=== PATIENT | female | born 1950 | race Caucasian/White ===

== ENCOUNTER 2019-09-14 16:45 | Observation (INO) | payer MEDICARE, OTHER ==
[~2019-09-14] VITALS: Ht 167.6 cm; Wt 61.7 kg
[2019-09-14] MEDS ORDERED: ONDANSETRON HCL INJ 2MG/ML 2ML 2 MG/ML VIAL IV NR (17:46)
[2019-09-14] MEDS ORDERED: SODIUM CHLORIDE 0.9% 1000ML 1,000 ML IV STA ×2 (17:46)
--- NOTE | 2019-09-14 17:51 | Emergency Department Note ---
History of Present Illnes History of Present Illness Chief Complaint: Abdominal Complaints History of Present Illness This is a 69 year old female . Historian: Patient Arrival Mode: Car Contract Specialist Required: No Onset (how long ago): month(s) (2) Location: RUQ/ EPIGASRIC Quality: sharp Severity: severe Onset quality: gradual Duration (how long): month(s) (2) Timing of current episode: constant Progression: worsening Chronicity: recurrent Context: Denies recent illness, Denies recent surgery, Denies recent immobilization, Denies recent travel, Denies trauma/injury, Denies new medications, Denies hx of DVT/PE, Denies non-compliance w/ medications, Denies other Relieving factors: none Exacerbating factors: none Treatments prior to arrival: none Past Medical/Family History Physician Review I have reviewed the patient's past medical and family history. Any updates have been documented here. Past Medical History Recent Fever: No Clinical Suspicion of Infectio: No New/Unexplained Change in Ment: No Past Medical History: GERD Other Medical History: gallstones Past Surgical History: Hysterectomy Other Surgery: cyst removal bladder repaired 2 foot surgeries Social History Any Illegal Drug Use: No TB Exposure/Symptoms: No Physically hurt or threatened: No Family History Family history of heart diseas: No Other Any Pre-Existing Lines (PICC,: No Is patient up to date on immun: Yes Review of Systems ROS Narrative c/o gallbladder pain states hx of gallstones told she may need gallbladder removal c/o nausea no vomiting denies dysuria/hematuria. Sent from Dr Dickey office for admission Review of Systems Constitutional: Reports no symptoms EENTM: Reports no symptoms Cardiovascular: Reports no symptoms Respiratory: Reports no symptoms Gastrointestinal: Reports abdominal pain, Reports nausea Genitourinary: Reports no symptoms Musculoskeletal: Reports no symptoms Integumentary: Reports no symptoms Neurological: Reports no symptoms Psychological: Reports no symptoms Endocrine: Reports no symptoms Hematological/Lymphatic: Reports no symptoms Physical Exam Related Data Allergies: Coded Allergies: latex (Verified Allergy, Unknown, 09/14/19) Triage Vital Signs Vital Signs Date Time Temp Pulse Resp B/P (MAP) Pulse Ox O2 Delivery O2 Flow Rate FiO2 09/14/19 17:32 98.6 72 18 183/80 100 Room Air Vital signs reviewed: Yes Physical Exam CONSTITUTIONAL Constitutional: Present well-developed, Present well-nourished HENT HENT: Present normocephalic, Present atraumatic, Present oropharynx c lear/moist, Present nose normal HENT L/R: Present left ext ear normal, Present right ext ear normal EYES Eyes: Reports PERRL, Reports conjunctivae normal NECK Neck: Present ROM normal PULMONARY Pulmonary: Present effort normal, Present breath sounds normal CARDIOVASCULAR Cardiovascular: Present regular rhythm, Present heart sounds normal, Present capillary refill normal, Present normal rate GASTROINTESTINAL Abdominal: Present soft, Present bowel sounds normal, Present tender (RUQ and epigastric) GENITOURINARY Genitourinary: Present exam deferred SKIN Skin: Present warm, Present dry MUSCULOSKELETAL Musculoskeletal: Present ROM normal NEUROLOGICAL Neurological: Present alert, Present oriented x 3, Present no gross motor or sensory deficits PSYCHOLOGICAL Psychological: Present mood/affect normal, Present judgement normal Results Laboratory Lab results reviewed: Yes Imaging Imaging results reviewed: Yes Assessment & Plan Medical Decision Making MDM Blood work, UA, to r/o infection IVF and , antibiotics and pain medication Discussed with patient admission and treatment plan with admission Assessment & Plan Final Impression: (1) Abdominal pain (2) Cholelithiasis Depart Disposition: ADMITTED Last Vital Signs Date Time Temp Pulse Resp B/P (MAP) Pulse Ox O2 Delivery O2 Flow Rate FiO2 09/14/19 17:32 98.6 72 18 183/80 100 Room Air KINZA ORTIZ Sep 14, 2019 17:51
[2019-09-14] MEDS ORDERED: MORPHINE SULFATE 2 MG/ML SYR 1ML IV NR (18:15)
[2019-09-14] MEDS ORDERED: FAMOTIDINE 20 MG/2 ML VIAL IV NR (18:15)
[2019-09-14 18:22] LABS: BASOPHILS % 0.2 % (0.0-1.0); EOSINOPHILS # (AUTO) 0.1 (0.0-0.4); EOSINOPHILS % 1.4 % (0.0-6.0); HEMATOCRIT 46.9 % (34.2-44.1); HEMOGLOBIN 15.2 g/dL (12.0-16.0); LYMPHOCYTES # (AUTO) 1.8 (1.0-3.2); LYMPHOCYTES % 18.9 % (18.0-39.1); MEAN CORPUSCULAR HGB CONC 32.4 g/dL (31-35); MEAN CORPUSCULAR VOLUME 86.4 fL (81-99); MONOCYTES # (AUTO) 0.5 (0.2-0.8); MONOCYTES % 5.8 % (4.4-11.3); NEUTROPHILS # (AUTO) 6.9 (2.1-6.9); NEUTROPHILS % 73.3 % (38.7-80.0); PLATELET COUNT 269 x10e3/uL (140-360); RED BLOOD COUNT 5.43 x10e6/uL (3.6-5.1); RED CELL DISTRIBUTION WIDTH 13.5 % (11.7-14.4)
[2019-09-14 18:25] LABS: BILIRUBIN,URINE NEGATIVE (NEGATIVE); CLARITY,URINE CLEAR (CLEAR); COLOR,URINE YELLOW (YELLOW); KETONES,URINE TRACE (NEGATIVE); LEUKOCYTE ESTERASE ,URINE NEGATIVE (NEGATIVE); NITRITE,URINE NEGATIVE (NEGATIVE); PROTEIN,URINE DIPSTICK NEGATIVE (NEGATIVE); URINE UROBILINOGEN 0.2 mg/dL (0.2 - 1)
[2019-09-14 18:29] LABS: INR 0.94; PROTHROMBIN TIME 13.1 seconds (11.9-14.5)
[2019-09-14 18:30] LABS: PARTIAL THROMBOPLASTIN TIME 26.9 seconds (23.8-35.5)
[2019-09-14] MEDS ORDERED: PIPER-TAZ 3.375 GM 50 ML IV NR (18:30)
[2019-09-14 18:38] LABS: BACTERIA,URINE MODERATE /HPF; EPITHELIAL CELLS,URINE MODERATE /LPF
[2019-09-14 18:38] LABS: ALANINE AMINOTRANSFERASE 17 IU/L (0-55); ALBUMIN 4.1 g/dL (3.5-5.0); ALBUMIN/GLOBULIN RATIO 1.2 (0.8-2.0); ALKALINE PHOSPHATASE 76 IU/L (40-150); ANION GAP 14.8 mmol/L (8-16); BLOOD UREA NITROGEN 9 mg/dL (7-26); BUN/CREATININE RATIO 11 (6-25); CALCIUM 9.2 mg/dL (8.4-10.2); CARBON DIOXIDE 24 mmol/L (22-29); CHLORIDE 105 mmol/L (98-107); CREATINE KINASE 57 IU/L (29-168); CREATININE, SERUM 0.85 mg/dL (0.57-1.11); EST GLOMERULAR FILTRATION RATE > 60 ML/MIN (60-); GLUCOSE 128 mg/dL (74-118); LIPASE 36 U/L (8-78); MAGNESIUM 1.8 MG/DL (1.3-2.1); POTASSIUM 3.8 mmol/L (3.5-5.1); SODIUM 140 mmol/L (136-145)
--- NOTE | 2019-09-14 19:15 | Diagnostic Imaging Report ---
EXAMINATION: CHEST SINGLE (PORTABLE) INDICATION: ^ERMD ORDER ^[id number] ^[id number] ^Y COMPARISON: None FINDINGS: AP view TUBES and LINES: None. LUNGS: Lungs are well inflated. There is no evidence of pneumonia or pulmonary edema. PLEURA: No pleural effusion or pneumothorax. HEART AND MEDIASTINUM: The cardiomediastinal silhouette is unremarkable. BONES AND SOFT TISSUES: No acute osseous lesion. Soft tissues are unremarkable. UPPER ABDOMEN: No free air under the diaphragm. IMPRESSION: No acute thoracic abnormality. Signed by: Dr. Janusz aFn MD on 09/14/2019 7:11 PM
[2019-09-14] MEDS: ONDANSETRON HCL INJ 2MG/ML 2ML 2 MG/ML VIAL IV PRN ×2 (20:29→23:28)
[2019-09-14 20:54] VITALS: BP 173/77
[2019-09-14] MEDS: SODIUM CHLORIDE 0.9% 1000ML 1,000 ML IV SCH (21:34)
[2019-09-14] MEDS ORDERED: MORPHINE SULFATE 2 MG/ML SYR 1ML IV PRN (22:00)
[2019-09-14] MEDS: PIPER-TAZ 3.375 GM 50 ML IV SCH (22:00)
[2019-09-14] MEDS ORDERED: ACETAMINOPHEN 325 MG TAB PO PRN (23:00)
[2019-09-14] MEDS ORDERED: ZOLPIDEM TARTRATE 5 MG TAB PO PRN (23:00)
[2019-09-14] MEDS: HYDROMORPHONE 1MG/1ML INJ IV PRN (23:28)
[2019-09-15] VITALS (10 sets, daily range): BP systolic 111–160; BP diastolic 46–77
--- NOTE | 2019-09-15 02:40 | NUR ---
PT IS TRANSFERRED FROM ER AOX3 RESPIRATIONS ARE EVEN AND UNLABORED LEFT AC 20G NS AT 125 CC/HR ASSESSMENT DONE ORIENTED THE PT TO THE ENVIRONMENT PT C/O PAIN AND GIVEN MORPHINE AND NOT EFFECTIVE CALLED DR WILLIAM AND GOT THE ORDER FOR DILAUDID .MEDICATED WITH DILAUDID ,PT IS RESTING .CALL LIGHT WITH IN REACH CONTINUE TO MONITOR
--- NOTE | 2019-09-15 02:44 | NUR ---
CALLED DR MCNEAL FOR CONSULT , HAS GIVEN THE ORDER FOR CONSENT FOR KATHLEEN KNAPP .PT IS NPO CONTINUE TO MONITOR
[2019-09-15] MEDS: HYDROMORPHONE 1MG/1ML INJ IV PRN ×3 (04:52→20:10)
[2019-09-15] MEDS: ONDANSETRON HCL INJ 2MG/ML 2ML 2 MG/ML VIAL IV PRN (04:52)
[2019-09-15 05:16] LABS: BASOPHILS % 0.2 % (0.0-1.0); HEMATOCRIT 46.5 % (34.2-44.1); LYMPHOCYTES # (AUTO) 1.7 (1.0-3.2); MEAN CORPUSCULAR HEMOGLOBIN 27.7 pg (28-32); MEAN CORPUSCULAR HGB CONC 32.3 g/dL (31-35); MEAN CORPUSCULAR VOLUME 85.8 fL (81-99); MONOCYTES # (AUTO) 1.1 (0.2-0.8); MONOCYTES % 9.6 % (4.4-11.3); NEUTROPHILS # (AUTO) 8.7 (2.1-6.9); NEUTROPHILS % 74.8 % (38.7-80.0); PLATELET COUNT 243 x10e3/uL (140-360); RED BLOOD COUNT 5.42 x10e6/uL (3.6-5.1); RED CELL DISTRIBUTION WIDTH 13.4 % (11.7-14.4)
[2019-09-15 05:38] LABS: ALANINE AMINOTRANSFERASE 16 IU/L (0-55); ALBUMIN 3.8 g/dL (3.5-5.0); ALBUMIN/GLOBULIN RATIO 1.1 (0.8-2.0); ALKALINE PHOSPHATASE 65 IU/L (40-150); ANION GAP 12.6 mmol/L (8-16); BLOOD UREA NITROGEN 6 mg/dL (7-26); BUN/CREATININE RATIO 8 (6-25); CALCIUM 8.5 mg/dL (8.4-10.2); CARBON DIOXIDE 23 mmol/L (22-29); CHLORIDE 103 mmol/L (98-107); CREATININE, SERUM 0.72 mg/dL (0.57-1.11); EST GLOMERULAR FILTRATION RATE > 60 ML/MIN (60-); GLUCOSE 152 mg/dL (74-118); LIPASE 21 U/L (8-78); POTASSIUM 3.6 mmol/L (3.5-5.1); SODIUM 135 mmol/L (136-145)
[2019-09-15] MEDS: PIPER-TAZ 3.375 GM 50 ML IV SCH ×2 (05:52→17:00)
--- NOTE | 2019-09-15 06:08 | NUR ---
H&P cc: abdominal pain HPI: 69yoF, PCP , GI , Sx , developed right upper abdominal pain; Pt had N/V with greenish material; Pain worse, so came to hospital. Really pain ongoing intermittently for 3 months; Pt sent from 's office for procedure for Cholelithiasis and Acute cholecystitis. PMH: GERd, endometriosis PSHx: hysterectomy, cyst, endometriosis related, bladder repair, foot x2 Allergies; see emr FH/HS; ; no cigs; meds; see MAR ROS: no f/c/s/RAI/cp/sob/skin rash/confusion/vision changes/focal limb weakness v/s; revd PE tired appearing anicteric ns1s2 mod bs soft nd; RUQ tender; mid abdomen tender no e/t skin dry n. affect a&ox3; [facility] lab/meds revd A/P: Cholelithiasis- sx consulted; Acute cholecystitis- IV abx; sx consulted GERD- ppi Prop: scd dispo: COVID screening; Jesus Poon MD, PHD.
--- NOTE | 2019-09-15 06:33 | NUR ---
PT RESTING .PT IS NPO FOR LAP HOLLEY .C/O PAIN AND GIVEN ORDERD PAIN MEDICATION.,CALL LIGHT WITH IN REACH ,CONTINUE TO MONITOR
[2019-09-15] MEDS: SODIUM CHLORIDE 0.9% 1000ML 1,000 ML IV SCH ×2 (06:49→12:00)
--- NOTE | 2019-09-15 08:00 | NUR ---
PT ASSESSMENT COMPLETED AND PT READY TO GO TO SURGERY. NPO SINCE MIDNIGHT. PAIN 5/10; MEDICATED AT ORDERED.
[2019-09-15] MEDS: FAMOTIDINE 20 MG/2 ML VIAL IV SCH ×2 (08:02→16:43)
--- NOTE | 2019-09-15 08:32 | NUR ---
DR BROOKS TO SEE PT.
[2019-09-15] MEDS ORDERED: BUPIVACAINE HCL 0.5% INJ 30 ML VIAL INJ ONE (09:04)
--- NOTE | 2019-09-15 09:35 | Consultation ---
DATE OF CONSULTATION: 09/15/2019 HISTORY OF PRESENT ILLNESS: This is a 69-year-old lady very well known to me, who admitted to the hospital last night because of severe pain in the right upper quadrant area. The patient has a history of gallstones, she had workup revealed that her white count is little bit high of 11.59 and her liver enzymes, however, is normal, and she is scheduled for cholecystectomy later today. PAST MEDICAL PROBLEM: Otherwise significant for history of some constipation, had colonoscopy yesterday and shows diverticulosis and colon polyps, history of reflux and hiatal hernia. CURRENT MEDICATIONS: Including famotidine and Zosyn. ALLERGIES: NONE. SOCIAL HISTORY: No alcohol abuse. FAMILY HISTORY: Noncontributory. REVIEW OF SYSTEMS: Denies any chest pain at this point. Denies any shortness of breath. Denies any dysphagia or odynophagia. Denies any dysuria, hematuria, or any kind of syncopal episode. PHYSICAL EXAMINATION: GENERAL: The patient is awake, alert, appears to be stable, not in acute distress at this point. VITAL SIGNS: Afebrile, currently without vital signs. HEAD, EYES, EARS, NOSE, AND THROAT: Normocephalic and atraumatic. Sclerae anicteric. NECK: Supple. HEART: Regular. ABDOMEN: Soft. There is some tenderness in the right upper quadrant area. There is no rebound or mass. EXTREMITIES: No clubbing. LABORATORY VALUES: WBC 11.59, hemoglobin of 15, hematocrit 45, MCV 46.5. Sodium 135. Liver enzymes normal and PT/INR is normal. IMPRESSION: Abdominal pain with gallstone with possible cholecystitis. RECOMMENDATIONS: Continue current care at this point. Proceed with cholecystectomy as planned and follow clinically. Rolan Ramsey MD DHD/MODL /[id number] cc: MD Jesus Fernandez MD Rakesh Patel, MD
[2019-09-15] MEDS ORDERED: ONDANSETRON HCL INJ 2MG/ML 2ML 2 MG/ML VIAL IV PRN (11:00)
[2019-09-15] MEDS ORDERED: FENTANYL CITRATE/PF 100MCG/2 ML INJ ONE (11:22)
[2019-09-15] MEDS ORDERED: KETOROLAC TROMETHAMINE 30 MG/ML VIAL ONE (11:51)
--- NOTE | 2019-09-15 12:17 | NUR ---
PT BACK FROM PROCEDURE VIA STRETCHER. PT TRANSFER TO BED. VS 98.3 P71 R22 [id number] BP110/55
--- NOTE | 2019-09-15 15:26 | Operative Report ---
DATE OF PROCEDURE: 09/15/2019 SURGEON: Nikolas Coreas MD PREOPERATIVE DIAGNOSES: Acute cholecystitis, cholelithiasis. POSTOPERATIVE DIAGNOSES: Acute cholecystitis, cholelithiasis. PROCEDURES: Diagnostic laparoscopy, laparoscopic cholecystectomy. AIRPLANE RIGGER: None. ANESTHESIA: General endotracheal. INDICATIONS AND FINDINGS: The patient is a 69-year-old female, presenting with complaints of severe epigastric right upper quadrant abdominal pain, started yesterday. Ultrasound revealed gallstone. At Surgery, based on the gallbladder was distended, edematous containing sludge and multiple stones. Cystic duct was about 3 mm in diameter. Common bile duct was about 5 mm in diameter. Liver, stomach, lower abdomen all appeared normal. TECHNIQUE: After adequate general endotracheal anesthesia, the patient is in supine position, the abdomen was prepped and draped in sterile fashion with ChloraPrep solution. Skin in the umbilicus was infiltrated with 0.5% Marcaine. Incision was made in the umbilicus. Abdominal wall was elevated and Veress needle was introduced. Pneumoperitoneum was then created. A 10 mm trocar and cannula were then passed through the umbilical wound. Laparoscopic camera was introduced. Initial laparoscopy revealed the gallbladder to be distended and edematous. Liver, stomach, lower abdomen appeared normal. A 10 mm trocar and cannula were placed in the epigastrium, two 5 mm trocars and cannulas were placed in the right upper quadrant, these were placed under direct vision. Gallbladder was tense, was decompressed with a needle contained some thick bile. The fundus of the gallbladder was grasped, retracted superiorly, there were adhesions over the neck of the gallbladder involving omentum, these were lysed, staying close to the gallbladder. The gallbladder cystic duct junction was dissected free. Cystic artery was also dissected free. The neck of the gallbladder completely dissected free. Cystic artery was divided between hemoclips close to the gallbladder. Cystic duct was also divided between hemoclips with 3 clips being left on the common bile duct side. The gallbladder was dissected free from the liver using scissors and electrocautery. Once it was entirely free, it was placed into an Endopouch and brought through the epigastric cannula. There were multiple stones. Gallbladder bed was inspected for hemostasis, which was seen to be adequate; it was irrigated with saline, all of fluid aspirated and inspected for hemostasis, which was seen to be adequate. Instruments and cannulas were removed. Pneumoperitoneum was evacuated. Wounds were then closed. Fascia in the umbilical and epigastric wound closed with 0 Vicryl. Skin to all wounds closed with ok. Sterile dressings applied to each wound. The patient tolerated the procedure well. Estimated blood loss was 15 mL. There were no complications. All counts were correct. The patient was taken to the recovery room in satisfactory condition. MD DRISS Fernandez/MODL /[id number] cc: MD Rolan Valladares MD Rakesh Patel, MD
--- NOTE | 2019-09-15 17:52 | Consultation ---
DATE OF CONSULTATION: 09/15/2019 REFERRING PHYSICIANS: 1. Jesus Poon MD. 2. Naif Grider MD. HISTORY OF PRESENT ILLNESS: The patient is 69-year-old female, who I saw yesterday in the office. She had complaints of severe epigastric right upper quadrant abdominal pain. She has known history of gallstones. The patient went to the emergency room and was admitted to the hospital. PAST MEDICAL HISTORY: Significant for multiple GI symptoms, constipation, known hiatal hernia with no other medical problems. ALLERGIES: SHE HAS NO KNOWN ALLERGIES. FAMILY HISTORY: Noncontributory. SOCIAL HISTORY: The patient does not smoke cigarettes or drink alcohol. REVIEW OF SYSTEMS: She has not had any fever or weight loss. PHYSICAL EXAMINATION: GENERAL: The patient is awake and alert, in no distress. VITAL SIGNS: Normal. HEENT: Sclerae is not icteric. NECK: Supple. No masses. LUNGS: Equal breath sounds are clear bilaterally. CARDIAC: Regular rate and rhythm. ABDOMEN: Tender in the epigastric, right upper quadrant. There is no mass. No distention. No organomegaly. EXTREMITIES: Have no edema. NEUROLOGIC: Grossly intact. LABORATORY DATA: White blood cell count 11, was 9.4, and 11.6 today. Hemoglobin and hematocrit are normal. Chemistries; normal liver function tests and lipase. ASSESSMENT: A 69-year-old female with acute cholecystitis with cholelithiasis. She will benefit from cholecystectomy, which I planned for today. Procedure was explained to the patient including risks, benefits, and alternatives. She understands. She has had the opportunity to ask questions. Thank you for asking see Ms. Flower. MD DRISS Fernandez/URIELL /[id number]
--- NOTE | 2019-09-15 18:30 | NUR ---
PT TOLERATES MEAL. NO C/O PAINS SINCE CAME BACK FROM SURGERY. NO OTHER CHANGES AT THIS TIME.
--- NOTE | 2019-09-15 19:06 | NUR ---
WALKING ROUNDS PERFORMED, RECEIVED PT LAYING SEMI FOWLERS IN BED, AAOX3, RR EVEN AND NON-LABORED, ON ROOM AIR. NO S/SX OF DISTRESS NOTED. LEFT PT LAYING SEMI FOWLERS IN BED, BED IN LOW LOCKED POSITION, SIDE RAILS UPX2, CALL LIGHT AND PHONE WITHIN REACH.
--- NOTE | 2019-09-15 20:10 | NUR ---
IV TUBING CHANGED D/T AIR IN CASSETTE.
[2019-09-16] VITALS: BP 108/53
[2019-09-16] MEDS: HYDROMORPHONE 1MG/1ML INJ IV PRN
[2019-09-16] MEDS: SODIUM CHLORIDE 0.9% 1000ML 1,000 ML IV SCH (01:07)
[2019-09-16] MEDS: PIPER-TAZ 3.375 GM 50 ML IV SCH ×2 (01:07→08:29)
[2019-09-16 04:00] VITALS: BP 111/48
--- NOTE | 2019-09-16 06:45 | NUR ---
SPOKE WITH MD GRIFFITH CONCERNING MD DE JESUS OK TO DISCHARGE. LET PT HAVE BREAKFAST AND SEE HOW THEY TOLERATE AND MD GRIFFITH WILL MAKE DECISION ON DISCHARGE HOME.
[2019-09-16] MEDS: HYDROCODONE/APAP 5MG-325MG TAB PO PRN ×3 (07:30→16:52)
--- NOTE | 2019-09-16 08:00 | NUR ---
RECEIVED PT ON BEDSIDE ROUNDS AND PT C/O PAIN AND THIS NURSE MEDICATED HER AND SHE IS FEELING MUCH BETTER AT THIS TIME 1/10 ON PAIN SCALE.
[2019-09-16] MEDS: FAMOTIDINE 20 MG/2 ML VIAL IV SCH (08:29)
[2019-09-16 08:30] VITALS: BP 97/57
[2019-09-16 08:31] VITALS: BP 97/51
--- NOTE | 2019-09-16 10:00 | NUR ---
PT RESTING QUIETLY. RESP EVEN AN UNLABORED
--- NOTE | 2019-09-16 10:59 | NUR ---
D/C summary Principal dx: Cholelithiasis- sx consulted; s/p lap sami Acute cholecystitis- IV abx; sx consulted; s/p lap sami SEcondary Dx; GERD- ppi Prop: scd dispo: COVID screening; d/c home stable f/u pcp 2 days and surgery as directed d/c >35mins Jesus Poon MD, PHD.
[2019-09-16 11:53] VITALS: BP 102/47
--- NOTE | 2019-09-16 14:41 | NUR ---
CALL TO DR. GRIFFITH FOR DC ORDER.
[2019-09-16 15:59] VITALS: BP 103/52
--- NOTE | 2019-09-16 19:04 | NUR ---
PT ACCOMPANIED OUT BY STAFF VIA WC TO PRIVATE CAR.
== END 2019-09-16 19:04 | disposition home or self-care (01) ==
LOC: ER 17:50 → ERHOLD 18:01 → MED/SURG 20:55
PROVIDERS: ADMIT Internal Medicine; ATTEND Internal Medicine
DX: K80.00 Calculus of gallbladder with acute cholecystitis without obstruction (principal); K21.9 Gastro-esophageal reflux disease without esophagitis; Z11.59 Encounter for screening for other viral diseases
CPT/HCPCS: 36415 ×2; 47562; 71045; 80053 ×2; 81001; 82550; 82553; 83690 ×2; 83735; 83880; 84484; 85025 ×2; 85610; 85730; 87086; 87635; 88304; 99284; G0378 ×3; J1170 ×3; J1885; J2270; J2405 ×2; J2543 ×3; J3010; J7030 ×2